=== PATIENT | male | born 1970 | race Caucasian/White ===

== ENCOUNTER 2016-11-03 23:14 | Inpatient (IN) | payer OTHER ==
[2016-11-03] MEDS ORDERED: LORazepam INJ* 2 MG/ML 1 ML VIAL IM ONE (23:18)
[2016-11-03] MEDS ORDERED: Haloperidol INJ IV/IM* 5 MG/ML AMP IM ONE (23:18)
[2016-11-03] MEDS ORDERED: diPHENhydraMINE IV* 50 MG/ML 1 ml VIAL (BENADRYL) IM ONE (23:19)
[2016-11-03] MEDS ORDERED: diPHENhydraMINE IV* 50 MG/ML 1 ml VIAL (BENADRYL) ONE (23:25)
[2016-11-03] MEDS ORDERED: LORazepam INJ* 2 MG/ML 1 ML VIAL ONE (23:25)
[2016-11-03] MEDS ORDERED: Haloperidol INJ IV/IM* 5 MG/ML AMP ONE (23:25)
--- NOTE | 2016-11-03 23:25 | UC ---
Psychiatric Complaint HPI - HPI Summary HPI Summary: posted suicidal ideation on Facebook was found by TCS attempted Suicide by Carbon monoxide pensioning in a garage with a car running-ovidio has a history of PTSD and Violence ---duration of exposure to carbon monoxide is unknown - History Of Current Complaint Chief Complaint: EDMentalHealth Time Seen by Provider: 11/03/16 23:15 Hx Obtained From: Patient, EMS, Medical Records, Other: - TC Manjitmukeshkareen Hx From Patient Unobtainable Due To: Other - not cooperative with interview ?: No Onset/Duration: Sudden Onset Timing: Constant Severity Initially: Severe Severity Currently: Severe Character: Depressed Alleviating Factor(s): Nothing Associated Signs And Symptoms: Hostile Related History: Positive For: Prior Psychiatric Issues Has Suicidal: Demonstrates Gesture, Has Prior Attempt(s) - Risk Factor(s) Completed Suicide Risk Factors: Male, White Iranian, Past Suicide Attempt - Allergies/Home Medications Allergies/Adverse Reactions: Allergies Allergy/AdvReac Type Severity Reaction Status Date / Time Penicillins [PCN] Allergy Rash Verified 10/05/15 01:33 PMH/Surg Hx/FS Hx/Imm Hx Previously Healthy: No Endocrine History: Dyslipidemia Psychological History: Depression, Post Traumatic Stress Disorder, Other - night terrors Other Psychological History: night terrors - Family History Known Family History: Positive: None Family History: no family history reported - Social History Occupation: Unemployed - social history is unconfirmed due to patients inabilty at this time to cooperate Lives: With Family Alcohol Use: Weekly Substance Use Type: None Smoking Status (MU): Unknown if Ever Smoked Review of Systems Constitutional: Negative Skin: Negative Eyes: Negative ENT: Negative Respiratory: Negative Cardiovascular: Negative Gastrointestinal: Negative Genitourinary: Negative Motor: Negative Neurovascular: Negative Musculoskeletal: Negative Neurological: Negative Psychological: Depressed, Other - suicidal All Other Systems Reviewed And Are Negative: Yes Physical Exam Triage Information Reviewed: Yes Completion Of Physical Exam Limited Due To: Patient is uncooperative with exam Appearance: No Pain Distress, Well-Nourished, Ill-Appearing Vital Signs Reviewed: Yes Eyes: Positive: Conjunctiva Inflamed - bilateral ENT Exam: Normal ENT: Positive: Normal ENT inspection, Hearing grossly normal. Negative: Nasal congestion, Nasal drainage, Tonsillar swelling, Tonsillar exudate, Trismus, Muffled/hoarse voice Neck exam: Normal Neck: Positive: Supple, Nontender Respiratory Exam: Normal Respiratory: Positive: Chest non-tender, Lungs clear, Normal breath sounds, No respiratory distress, No accessory muscle use Cardiovascular Exam: Normal Cardiovascular: Positive: No Murmur, Pulses Normal, Brisk Capillary Refill, Tachycardia Abdominal Exam: Normal Abdomen Description: Positive: Nontender, No Organomegaly, Soft Bowel Sounds: Positive: Present Musculoskeletal Exam: Normal Musculoskeletal: Positive: Strength Intact, ROM Intact, No Edema Neurological Exam: Normal Neurological: Positive: Alert, Muscle Tone Normal Psychological Exam: Other Skin Exam: Normal Re-Evaluation - Re-Evaluation First Eval Change: Unchanged - CO 28.2 pat continues on 10 liter oxy mask--reviewed case with Dr. Simms Plan to call [facility] Second Eval Re-Evaluation Time: 14:15 Change: Unchanged Comment: all restraines are of on 10l oxymask, arousable but not combative, spoke with [facility] transfer who (Dr. Duval) refused transfer as they could offer no additional care than what we have available---again reviewed case with Dr. Simms---plan to admit to [facility] report and case presentation to Dr. King Psych Complaint Course/Dx - Course Course Of Treatment: High yvonne O2, Safety, admit to [facility] - Differential Dx/Diagnosis Differential Diagnosis/HQI/PQRI: Depression, Suicide Attempt Provider Diagnoses: Suicide Attempt Co Poisioning - Physician Notifications Discussed Patient Care With: Amos Padilla Time Discussed With Above Provider: 02:10 Instructed by Provider To: Admit As Inpatient Discharge - Discharge Plan Condition: Guarded Disposition: ADMITTED TO [facility]
[2016-11-04 00:43] LABS: Hematocrit 46 % (42-52); Hemoglobin 16.1 g/dl (14.0-18.0); Mean Corpuscular HGB Conc 35 g/dl (31-36); Mean Corpuscular Hemoglobin 33 pg (27-31); Mean Corpuscular Volume 95 fL (80-94); Mean Platelet Volume 8 um3 (7.4-10.4); Red Blood Count 4.88 10^6/ul (4.0-5.4); Red Cell Distribution Width 14 % (10.5-15); White Blood Count 7.3 10^3/ul (3.5-10.8)
[2016-11-04 01:00] LABS: ALT 23 U/L (7-52); AST 29 U/L (13-39); Albumin 4.6 g/dL (3.2-5.2); Alkaline Phosphatase 59 U/L (34-104); Anion Gap 8 mmol/L (2-11); BUN/Creatinine Ratio 8.8 (8-20); Blood Urea Nitrogen 9 mg/dL (6-24); CO2 Carbon Dioxide 22 mmol/L (22-32); Calcium 9.4 mg/dL (8.6-10.3); Chloride 107 mmol/L (101-111); EGFR Non-African American 79.3 (>60); Globulin 3.1 g/dL (2-4); Glucose 100 mg/dL (70-100); Potassium 3.6 mmol/L (3.5-5.0); Sodium 137 mmol/L (133-145); Total Protein 7.7 g/dL (6.4-8.9)
[2016-11-04 01:13] LABS: Acetaminophen < 15 mcg/mL; Alcohol 89 mg/dL (<10); Salicylate < 2.50 mg/dL (<30)
[2016-11-04 01:24] LABS: TSH (Thyroid Stimulating Horm) 1.93 mcIU/mL (0.34-5.60)
[2016-11-04 01:52] LABS: Urine Bacteria Absent (Absent); Urine Bilirubin Negative (Negative); Urine Glucose Negative (Negative); Urine Nitrite Negative (Negative)
[2016-11-04 02:04] LABS: Benzodiazepine Urine Screen None Detected (None Detect)
[2016-11-04 02:53] LABS: Troponin I 0.01 ng/mL (<0.04)
[2016-11-04] MEDS ORDERED: NS 0.9% w/ 20 Meq KCL 1000 ML* 1,000 ML IV SCH (04:00)
[2016-11-04] MEDS ORDERED: Ziprasidone * 20 MG CAP (generic Geodon) PO PRN (09:42)
[2016-11-04] MEDS ORDERED: LORazepam INJ* 2 MG/ML 1 ML VIAL IM PRN ×2 (09:42→18:32)
[2016-11-04] MEDS: Heparin VIAL(*) 5000 UNITS/ML VIAL (FIVE THOUSAND) SUBCUT SCH (09:57)
--- NOTE | 2016-11-04 10:03 | RAD ---
Indication: Elevated CO2 levels. Single frontal view of the chest performed at 0115 hours was reviewed. No prior study is available for review. No mediastinal shift is noted. Heart is of normal size and configuration. Lung medrano appear clear. IMPRESSION: NO ACTIVE CARDIOPULMONARY DISEASE IS NOTED.
[2016-11-04] MEDS: LORazepam TAB(*) 1 MG PO PRN (10:04)
[2016-11-04] MEDS ORDERED: Ziprasidone IM INJ* 20 MG/ML VIAL IM PRN (10:42)
[2016-11-04] MEDS ORDERED: oxyCODONE/Acetamin 5/325 MG* TAB PO PRN (11:03)
--- NOTE | 2016-11-04 11:25 | PN ---
Progress Note - Progress Note Date of Service: 11/04/16 Note: CRITICAL CARE MEDICINE Date: 11/04/16 Time: 1000 SUBJECTIVE: Patient seen but he refused to be examined. we did converse as much as able. He denies kenney. He states he wants to leave. I explained he couldn't and we discussed potential treatment needs. He declined such at this time. He is declining food. He became more agitated stating he wants to leave and why are we keeping him here. I explained his initial carbon monoxide toxic levels and the time need to clear this. He states "they weren't toxic enough because they didn't get the job done". He states he tried this before and it didn't work and we had him in the hospital and then just let him go. Psych has evaluated and are helping facilitate transfer to [facility]. PHYSICAL EXAM: Vital Signs: Reviewed from overnight. He is awake communicating, agitated at times, and angry. Not flushed. Skin looks stable color. RA now and mnl breathing pattern. Again, exam otherwise declined and pt wearing his street clothes. LABS: Reviewed. IMAGING: CXR nml. MEDICATIONS: Reviewed. ASSESSMENT: 46 M with intentional carbon monoxide poisoning, polysubstance abuse (cocaine, marijuana and etoh) and suicidal behavior admitted to ICU overnight given his levels and observatory care. Better this am from [place]. However, psych features with h/o violence coming forward. Already left building ama with [place] police bring him back in. Remains suicidal. 1:1 and security aware. Pt declining specific tx from me at this time, but after my visit he is requesting pain meds for his msk pain. Ativan prn. Geodon prn. Seeking transfer to [place] inpt psych for which his is now stable medically and no longer needs ICU, but will stay her given the logositic and concerns regarding his potential eloping or violence. Does not require ICU mechanical monitoring at this time. See if he can become more reasonable at all with time. Appreciate psych eval and f/u. Supportive and preventative care as ordered. SUP: po diet VTE prophylaxis: declines Disposition: ICU Code Status: Full Critical Care Time: 30min FYovanny Sepulveda DO
--- NOTE | 2016-11-04 11:51 | HP ---
ADMISSION HISTORY AND PHYSICAL: DATE OF ADMISSION: 11/04/16. PRIMARY CARE DOCTOR: The patient's primary care doctor is in [place], he cannot remember the name. CHIEF COMPLAINT: Suicide attempt. HISTORY OF PRESENT ILLNESS: Mr. Vieira is a 46-year-old male who was brought in by law enforcement in an agitated and violent state. He was found in a garage, which was locked with a car running in a suicide attempt. When the patient was brought in, he was combative and placed in 4-point restraints. He received Haldol, Ativan, and Benadryl and has been lethargic since then. The patient was found to have elevated carbon monoxide in the blood and there was an attempt to transfer the patient from this hospital to [facility] for critical care, but the plant breeder scientist there declined the case stating that no treatment was needed beyond high flow oxygen. The patient cannot give any history. PAST MEDICAL HISTORY: Includes PTSD and violence. The patient is not known to this hospital. PAST SURGICAL HISTORY: No surgical history known. MEDICATIONS: Unknown, although there was a list in the computer from a previous ER visit for an injury which includes: 1. Abilify. 2. Cymbalta. 3. Gemfibrozil. 4. Magnesium. 5. Prazosin. 6. Topamax. ALLERGIES: PENICILLIN. FAMILY HISTORY: The patient has unknown family history. SOCIAL HISTORY: Unknown. He does use alcohol and marijuana based on his urine drug screen. It is unknown why he is in [place], apparently lives in [place]. REVIEW OF SYSTEMS: The patient's review of systems unable to be completed due to his mental status. PHYSICAL EXAMINATION GENERAL: He is somnolent, arouses to tactile stimulation, would just back off to sleep after saying a few words. VITAL SIGNS: Temperature is 37.0, pulse 75, respirations 20, blood pressure is 136/81, O2 sat is 92%. HEENT: His head is normocephalic, atraumatic. Sclerae are anicteric. Pupils are dilated and reactive to light symmetrically. Oropharynx is moist, no lesions. His gag reflux is intact. NECK: No deformity. Trachea midline. No carotid bruits or thyromegaly. LUNGS: Clear to auscultation and percussion bilaterally. HEART: Regular rate and rhythm without murmurs or gallops. ABDOMEN: Soft, nontender, positive bowel sounds. No hepatosplenomegaly. EXTREMITIES: No obvious injuries. No peripheral edema. SKIN: No lesions. NEUROLOGIC: Cranial nerves II through XII are grossly intact. He can move all 4 extremities with equal power. He does not really follow commands. He cannot comply with a full neurologic examination. PSYCHIATRIC: He is somnolent, will say a few words like yes or no, and answer to questions when he is stimulated physically, but then just back to sleep. LABORATORY DATA: Sodium 135, potassium 3.6, chloride 107, bicarb 22, BUN 9, creatinine 1.02, glucose 100, calcium 9.4, albumin 4.6, AST 29, ALT 23, bilirubin 0.4. TSH 1.93. Carbon monoxide level is 28.2. CK-MB is 4.6. Troponin 0.01. White count 7.3, hemoglobin 16.1, hematocrit 46%, and platelets are 195. Alcohol level 89, acetaminophen level 0, salicylate level 0. Urinalysis shows cocaine positive, cannabis positive. Urinalysis shows 1+ blood and otherwise normal. EKG shows sinus arrhythmia, normal axis, T-wave flattening in leads III and aVF. DIAGNOSTIC DATA: Chest x-ray is negative for infiltrates or effusions. ASSESSMENT AND PLAN: A 46-year-old male with severe carbon monoxide exposure. There is a risk of myocardial damage and cerebral anoxic injury. The patient requires treatment in the intensive care unit with high flow oxygen and close monitoring. We will have to see if any myocardial or cerebral damage is not done when the patient wakes up and can comply with further testing. The patient also has had a severe suicide attempt and will be monitored one to one and have psychiatry consult when he is alert and able to be interviewed. We can try to obtain further records from his pharmacy in the morning or from primary care or Psychiatry in [place]. Code status is full. He will be off subcutaneous heparin while he is in the ICU given his bedbound status. [id number]/[facility] #: [id number] [facility]X HOSPITALBeto
--- NOTE | 2016-11-04 11:59 | CONS ---
PSYCHIATRIC CONSULTATION: DATE OF ADMISSION: 11/04/16 DATE OF CONSULTATION: 11/04/16 ATTENDING PHYSICIAN: Amos Padilla MD CONSULTING PROVIDER: Navneet Sosa MD REASON FOR CONSULT: Suicide attempt. 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 The patient was mos tly unresponsive and was subsequently discovered to have an alcohol level of 89, also with cocaine a nd cannabinoids in his system. Initially his carbon monoxide level was toxic at 28.2; however, a arambula bsequent recheck revealed this had come back to normal at 9.2. Apparently the patient, when he woke up early this morning, tried to elope from the hospital resulting in local law enforcement being annika led to bring him back to the ICU, so that he could be medically and psychiatrically cleared. At thi s time, he is uncooperative. I see that he has a work uniform on, although he will not tell me wher e he works. He is stating only that he wants to go home and go to bed. I asked repeatedly whether he is safe to do so and he will not respond. The patient refuses to answer any questions about suic idal or homicidal behaviors, he appears angry, hostile and agitated. At this time, he is willing to take 2 mg oral Ativan, but he is mostly uncooperative with history taking and there is limited info rmation in his chart with respect to his history. He is telling me that he is a service- [facility] combat [facility] and has had prior hospitalizations at the [facility] althoug h he does not recall when his latest was. I asked the patient for collateral contacts and he respon ds that he has no one. Checking his demographics in the chart, I do not see any collateral family m embers or friends listed and therefore I am only going by his limited account. PAST PSYCHIATRIC HISTORY: The patient does have one prior visit to [facility] in September of 2015, when he was brought in again by the police intoxicated, having been menacing towards his girl friend at that time. His alcohol level at that time was 216, and once he sobered up he became coope rative and denied further thoughts of harm to himself or others and was subsequently discharged. He states that he has a formal diagnosis of PTSD. Currently he states that he is not taking medicatio n. It is unclear whether he has had outpatient treatment for these issues. SUBSTANCE ABUSE HISTORY: Positive for cocaine, alcohol and cannabis abuse. The patient admits to s moking cigarettes as well. MEDICAL HISTORY: Significant for hyperlipidemia. MEDICATIONS: Last noted medications included: 1. Abilify 20 mg p.o. daily. 2. Cymbalta 60 mg p.o. daily. 3. Lopid 600 mg p.o. b.i.d. 4. Prazosin 6 mg p.o. q.h.s. 5. Topamax 200 mg nightly. FAMILY HISTORY: Unknown. SOCIAL HISTORY: The patient states that he lives alone in [place]. He is currently employed and he is wearing a work shirt; however, he refuses to tell me who his employer is. The patient is an [employer] . 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 He states that he was in [place] between the [facility] rs of 2002 and 2003. MENTAL STATUS: Examination is as follows: The patient is a middle aged white male wearing a work s corinna, who is sitting in a chair in the ICU staring at the floor. He is uncooperative and will not ma ke eye contact. Speech is limited and not spontaneous. Mood appears to be irritable with a labile affect. Thought process is linear. Thought content is significant for his desire to leave the hosp ital. The patient refuses to answer questions about suicidal or homicidal ideations, although he is known to have been violent with law enforcement officials prior to coming to the hospital. It is al so known that he made a formal suicide attempt last night by running carbon monoxide into his car in a local parking garage. He denies auditory or visual hallucinations and there is no evidence of ac tive psychosis. Insight and judgement appears to be poor, given the patient's refusal for a followu p treatment. Cognitively he is awake and alert with what would appear to be an average intellect. DIAGNOSES: As follows: [place] I: Posttraumatic stress disorder, cocaine use disorder, alcohol use disorder, cannabis use dis order. [place] II: Antisocial personality traits. IMPRESSION: The patient is a 46-year-old single white male, [place] [employer] who arrives at [facility] facility initially intoxicated on cocaine, alcohol and Cannabis, who has apparently attempted suic lorena via carbon monoxide poisoning. When he awoke, he was agitated and insisting on leaving the hos pital and had to be brought back by local law enforcement after eloping from our facility. At this time, he is angry and noncooperative and cannot contract for his own safety. RECOMMENDATIONS TO PRIMARY TEAM: It is my opinion that this patient represents a danger to both him self and others. He is service connected at the [employer] and I am certain that they know his case the bes t. The standard of care would be to transfer him to a local [facility] for further psychiatric stabilizat ion. I am going to recommend Ativan 2 mg p.o. q.6 h. at this point to help him relax as he awaits jean marie flores. Psychiatry will continue to provide consultation. Thank you for the consult. [id number]/[facility] #: [id number]
[2016-11-04] MEDS ORDERED: LORazepam INJ* 2 MG/ML 1 ML VIAL IV PUSH PRN (13:49)
[2016-11-04 18:03] VITALS: BP 117/74
[2016-11-05] MEDS: Heparin VIAL(*) 5000 UNITS/ML VIAL (FIVE THOUSAND) SUBCUT SCH ×2 (00:58→09:39)
[2016-11-05] MEDS ORDERED: Ziprasidone IM INJ* 20 MG/ML VIAL IM ONE (05:00)
[2016-11-05 08:21] LABS: Calcium 9.4 mg/dL (8.6-10.3); EGFR African American 89.7 (>60); EGFR Non-African American 69.8 (>60); Potassium 4.1 mmol/L (3.5-5.0)
[2016-11-05] MEDS: LORazepam TAB(*) 1 MG PO PRN (10:07)
--- NOTE | 2016-11-05 11:30 | DS ---
CRITICAL CARE MEDICINE DISCHARGE SUMMARY ADMISSION DATE: 11/03/2016 ICU ADMISSION DATE: 11/04/2016 ICU DISCHARGE DATE: 11/05/2016 PRIMARY CARE PROVIDER: unknown REFERRING PHYSICIAN: Dr. Moreno. DIAGNOSIS: 1. Carbon monoxide poisoning. 2. Acute metabolic delirium. 3. Severe depression. 4. Suicidal ideation and attempt. 5. Post traumatic stress disorder. 6. Polysubstance abuse (toxicology screen positive for cocaine, marijuana). 7. History of violence. MEDICATIONS AT DISCHARGE: Lorazepam (Ativan Tab(*)) 2 mg PO Q6H PRN PRN Reason: ANXIETY Lorazepam (Ativan Inj*) 2 mg IV PUSH Q4H PRN PRN Reason: AGITATION/ANXIETY Lorazepam (Ativan Inj*) 2 mg IM Q4H PRN PRN Reason: ANXIETY Ziprasidone (Geodon (Generic) *) 20 mg PO DAILY PRN PRN Reason: AGITATION Ziprasidone (Geodon Im Inj*) 10 mg IM TID PRN PRN Reason: AGITATION ALLERGIES: Penicillins. HOSPITAL COURSE: 46 year old male [place] war with history of PTSD presenting with suicidal attempt with carbon monoxide poisoning. Patient had posted his intentions on [employer] and his sister alerted police who found patient with tubing connected from his exhaust pipe into his running car. Brought into the emergency department. Carbon monoxide level of 28.2. Treated with fluids and oxygen. Admitted to ICU with psychiatry consult. Patient eloped from hospital [place] and brought back in by police. Treated with geodon, ativan as able. Non-remorseful and still potential harm to self and potentially others. Needing inpatient psychiatry when bed available at [facility]. DISPOSITION: Discharge from hospital with direct admission to [facility] inpatient psychiatry in [place]. DIET: Regular. ACTIVITY: Out of bed. CODE STATUS: FULL. FOLLOW UP: with treating medical service Clyde Sepulveda DO
--- NOTE | 2016-11-05 11:56 | PN ---
Progress Note - Progress Note Date of Service: 11/05/16 Note: CRITICAL CARE MEDICINE Date: 11/05/16 Time: 1000 SUBJECTIVE: Patient seen. Stable. wants to leave PHYSICAL EXAM: Vital Signs: Reviewed. awake communicating less agitated. eyes closed bot wanting to talk. LABS: Reviewed. IMAGING: Reviewed. MEDICATIONS: Reviewed. ASSESSMENT: 46 M with intentional carbon monoxide poisoning, polysubstance abuse (cocaine, marijuana and etoh) and suicidal behavior in ICU for continued 1 :1 observation awaiting inpt psych at [place]. labs stable. off monitior. po intake. ativanjosedon prn. needs inpt psych today Supportive and preventative care as ordered. VTE prophylaxis: declines Disposition: could be on floor but in icu for logisitics Code Status: Full Critical Care Time: 20min Clyde Sepulveda DO
--- NOTE | 2016-11-05 15:34 | PN ---
Subjective - Subjective Service Type: 32269 Hosp care 15 min low complexity Subjective: The patient remains in the ICU, medically clear, but under 1:1 observation due to suicidality. He will not make eye contact with me and is lying supine in his bed, staring at the ceiling. He denies having any collateral contacts, either friends or family, that are involved in his care. He is a patient of a Dr. Miller at the [facility] but states that he went off psychotropic medications months ago. He has been hospitalized psychiatrically at the [facility] in the past but cannot recall when. He has tried to elope again today only to be brought back by police. Occasionally he will accept PO lorazepam for agitation but no other medications. He refuses to answer questions about continued suicidal ideation. Objective - Appearance Appearance: Well Developed/Nourished Dysmorphic Features: No Hygiene: Normal Grooming: Fairly Well Kept - Behavior Psychomotor Activities: Abnormal-Decreased Exhibits Abnormal Movement: No - Attitude and Relatedness Attitude and Relatedness: Hostile Eye Contact: Poor - Speech Quality: Pressured Latencies: Long Quantity: Terse - Mood Patient's Decription of Mood: "Angry" - Affect Observed Affect: Tense Affect Consistent with: Dysphoria - Thought Process Patient's Thought Process: Coherent Thought Content: Yes Suicidal Planning, No Passive Wish, No Homicidal Ideation, No Paranoid Ideation - Sensorium Experiencing Hallucinations: No, Sensorium is Clear Type of Hallucinations: Visual: No, Auditory: No, Command: No - Level of Consciousness Level of Consciousness: Agitated Orientation: Yes Intact, Yes Orientated to Time, Yes Orientated to Place, Yes Orientated to Person - Impulse Control Impulse Control: Poor - Insight and Judgement Insight and Judgement: Impaired - Group Participation Particating in Group Activities: No - Medication Management Medication Management Adherence: No Assessment - Assessment Merits Inpatient Hospitalization: For Immediate Safety, For Stabilization Inpatient DSM-IV Dx: PTSD Clinical Impression: 46 y.o. single, white male [place] [employer] with a history of combat related PTSD who was brought in by the police after being discovered poisoning himself with CO while running his automobile in a closed garage. He is unwilling to contract for safety and presents as angry and irritable with cocaine, alcohol and cannabis in his system at the time of admission. Plan - Plan Treatment Plan: Name: KEYON WILLINGHAM Birthdate: 1970 [id number] Patient refusing resumption of psychiatric medications and insisting on going home but refuses to contract for safety. Police have had to bring him back twice following elopement. staff is pursuing transfer to a [facility], however, no beds available at [facility]. Will extend search to [facility] and [facility]. Continue prn lorazepam for agitation. Psychiatry will continue to follow. Continued Medication Management: Start Medication Medications: Current Medications Lorazepam (Ativan Tab(*)) 2 mg PO Q6H PRN PRN Reason: ANXIETY Last Admin: 11/05/16 10:07 Dose: 2 mg Lorazepam (Ativan Inj*) 2 mg IV PUSH Q4H PRN PRN Reason: AGITATION/ANXIETY Last Admin: 11/05/16 04:45 Dose: 2 mg Lorazepam (Ativan Inj*) 2 mg IM Q4H PRN PRN Reason: ANXIETY Oxycodone/Acetaminophen (Percocet 5/325 Tab*) 2 tab PO Q6H PRN PRN Reason: PAIN Last Admin: 11/04/16 12:01 Dose: 2 tab Ziprasidone (Geodon (Generic) *) 20 mg PO DAILY PRN PRN Reason: AGITATION Stop: 11/06/16 09:01 Ziprasidone (Geodon Im Inj*) 10 mg IM TID PRN PRN Reason: AGITATION Last Admin: 11/04/16 14:11 Dose: 10 mg - Discharge Plan Discharge Plan: Inpatient Hospitalization
== END 2016-11-05 17:13 | DRG 918 ==
LOC: ED 23:14 → ICU 11-04 02:57
PROVIDERS: ADMIT Internal Medicine; ATTEND Internal Medicine Critical Care Medicine
DX: T58.02XA Toxic effect of carbon monoxide from motor vehicle exhaust, intentional self-harm, initial encounter (principal); Z78.1 Physical restraint status; F32.9 Major depressive disorder, single episode, unspecified; F43.10 Post-traumatic stress disorder, unspecified; Z88.0 Allergy status to penicillin; Y92.59 Other trade areas as the place of occurrence of the external cause; E78.5 Hyperlipidemia, unspecified; Z56.0 Unemployment, unspecified; F10.10 Alcohol abuse, uncomplicated; F14.10 Cocaine abuse, uncomplicated; Y90.9 Presence of alcohol in blood, level not specified; F12.10 Cannabis abuse, uncomplicated; R45.1 Restlessness and agitation; Y90.4 Blood alcohol level of 80-99 mg/100 ml; F17.210 Nicotine dependence, cigarettes, uncomplicated; R41.0 Disorientation, unspecified
CPT/HCPCS: 36415; 71010; 80048; 80053; 80307; 80320; 80329; 81003; 81015; 82375; 82553; 84443; 84484; 85025; 93005; 94760; A9270-GY; G0480; J1200; J1630; J2060

== ENCOUNTER 2016-11-05 16:00 | Inpatient (IN) | payer OTHER ==
[2016-11-05] MEDS ORDERED: Acetaminophen TAB* 325 MG PO PRN (16:23)
[2016-11-05] MEDS ORDERED: Nicotine GUM* 2 MG PO PRN (16:23)
[2016-11-05] MEDS ORDERED: Al Hydrox/Mg Hydrox/Simet LIQ* 30 ML UDC PO PRN (16:23)
[2016-11-05] MEDS ORDERED: Nicotine Inhaler* 10 MG AMP INH PRN (16:23)
[2016-11-05] MEDS ORDERED: Magnesium Hydroxide LIQ* 30 ML UDC PO PRN (16:26)
[2016-11-05] MEDS ORDERED: Ziprasidone IM INJ* 20 MG/ML VIAL IM PRN (17:41)
[2016-11-05] MEDS ORDERED: Prazosin CAP* 5 MG PO PRN (17:43)
[2016-11-05] MEDS ORDERED: Prazosin CAP* 1 MG PO PRN (17:44)
[2016-11-05 18:52] VITALS: BP 0/0
[2016-11-05] MEDS ORDERED: Mouth Piece, Nicotine* 1 EACH CARTRIDGE ONE (19:48)
[2016-11-06] MEDS: oxyCODONE/Acetamin 5/325 MG* TAB PO PRN ×2 (11:58→21:33)
[2016-11-06] MEDS: Haloperidol TAB* 5 MG PO PRN ×2 (12:03→21:29)
[2016-11-06] MEDS: LORazepam TAB(*) 1 MG PO PRN ×2 (12:03→21:29)
--- NOTE | 2016-11-06 22:04 | HP ---
PSYCHIATRIC ASSESSMENT: DATE OF ADMISSION: 11/05/16 JUSTIFICATION FOR ADMISSION: The patient is in need of 24-hour supervision and care secondary to suicide attempt within 72 hours of admission date. CHIEF COMPLAINT: "Either you let me out of here or you are not doing nothing for me." HISTORY OF PRESENT ILLNESS: Lázaro Vieira is a 46-year-old single [employer] with combat service in [place], who was brought to the hospital by police after being found in a garage with the garage door closed and his automobile running resulting in carbon monoxide poisoning in what was a formal suicide attempt. The patient was mostly unresponsive and subsequently discovered to have an alcohol level of 89 along with cocaine and cannabinoids in his system. Initially, his carbon monoxide level was toxic at 28.2; however, a subsequent recheck revealed that this had come back to normal at 9.2. Apparently, the patient woke up on the morning of hospitalization and tried to elope. In fact, he tried on at least 2 occasions to elope from the ICU. Once he was medically cleared, it was determined that he would meet criteria for psychiatric stabilization and he was therefore transferred to the behavioral science unit. The patient is wearing his work uniform on and he is mostly uncooperative refusing to answer any questions about suicidal or homicidal behaviors. He has been angry, hostile, and agitated and there is limited history in his chart and the patient is not providing me with much history himself. 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 He has had prior hospitalizations at the [facility], although he does not recall when his latest was. I asked for collateral contacts and he responds that his parents live [place] of [place] that he is not willing to call them unless they are coming to pick him up from the hospital. I am aware that he had a girlfriend until recently a woman named Ayanna, who apparently broke up with him and has signed an order of protection. He is concerned that they were sharing a house, in which the lease is in her name. The patient has a [employer] connected service dog that is still there and he states that he is concerned about the dog and wants to return home so that he can make sure that it is okay. PAST PSYCHIATRIC HISTORY: The patient does have one prior visit to [facility] in September of 2015 and in that case, he was also brought in intoxicated having menacing behavior towards his girlfriend. His alcohol level at that time was 216 and once he sobered up, he became cooperative and denied further thoughts of harm to himself or others and was subsequently discharged without being admitted. He does state that he has a formal diagnosis of PTSD, but states that he discontinued his medication a [id number]-half ago because he felt that it was not working. He indicated that he has gone back to [facility] multiple times to request a change in medications only to have them increase the doses of what he had been taking. The patient refuses to answer questions about past suicidal or homicidal behaviors. SUBSTANCE ABUSE HISTORY: The patient abuses cocaine, alcohol, and cannabis. He smokes an unknown quantity of cigarettes daily as well. PAST MEDICAL HISTORY: Significant for hyperlipidemia. MEDICATIONS: As last noted in our system were: 1. Abilify 20 mg p.o. daily. 2. Cymbalta 60 mg p.o. daily. 3. Lopid 600 mg p.o. b.i.d. 4. Prazosin 6 mg p.o. q.h.s. 5. Topamax 200 mg p.o. q.h.s. FAMILY HISTORY: Unknown. SOCIAL HISTORY: The patient states that he was born and raised in the [place] area and both of his parents still reside in [facility]. He is currently employed for [employer] at their facility on [facility]. The patient is an [employer] and has an Army service dog at home. 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 The patient states that he served in [place] for one tour between the years of 2002 and 2003. He is unwilling to share his traumatic experiences with this observer. REVIEW OF SYSTEMS: The patient denies headache or double vision. He is complaining of some right-sided chest pain apparently caused by an altercation between him and the police prior to appearing at the hospital. Other than this , he denies difficulty breathing, cough, or sore throat. He denies abdominal pain, nausea, vomiting, diarrhea, or constipation. He denies difficulty ambulating, changes in weight, fevers, rashes, or enlarged lymph nodes. PHYSICAL EXAMINATION Physical examination could not be done due to the patient's uncooperative nature. He is not even allowing us to take vital signs. MENTAL STATUS EXAMINATION: The patient is a middle-aged white male wearing a Lisandro work shirt, who is sitting in his bed starring at the floor. He is uncooperative and will not make eye contact. Speech is limited and nonspontaneous. Mood appears to be irritable with a labile affect. Thought process is linear. Thought content is significant for his desire to leave the hospital. The patient refuses to answer questions about suicidal or homicidal ideations, although he is known to have been violent with law enforcement officials prior to coming to the hospital. It is also known that he made a formal suicide attempt last night by running carbon monoxide into his car in a local parking garage. He denies auditory or visual hallucinations and there is no evidence of active psychosis. Insight and judgment appears to be poor given the patient's refusal for followup treatment. Cognitively, he is awake and alert with what would appear to be an average intellect. LABORATORY DATA: CBC is within normal limits. Most recent carbon monoxide was within normal limits at 3.5%. Complete metabolic panel is within normal limits. TSH normal at 1.93. Urinalysis is within normal limits. Urine toxicology shows positive metabolites of cocaine and cannabis and his alcohol was elevated at 89 upon admission. DIAGNOSES: [place] I: Posttraumatic stress disorder, cocaine use disorder, alcohol use disorder, cannabis use disorder. [place] II: Antisocial personality traits. [place] III: Hyperlipidemia. [place] IV: Severe primary support, housing, and legal stressors. [place] V: Currently 30. IMPRESSION: The patient is a 46-year-old single white male [place] [employer] , who arrives at our unit as a transfer from the ICU following medical stabilization of carbon monoxide poisoning, which was self-inflicted by letting his vehicle run in a closed garage. The patient was intoxicated on cocaine, alcohol, and cannabis during his arrival. When he woke, he was agitated and insisting on leaving the hospital and has had to be brought back twice by local law enforcement after eloping twice. His presentation has not changed since his transfer from the ICU to the behavioral health unit as he remains angry and uncooperative and cannot contract for his own safety. PLAN: The patient is admitted to the adult behavioral health unit where he is placed on q.15-minute checks for his own safety. Given the circumstances of his attempts to elope and his irritability, we will likely increase this to constant observations at this time. He is a service-connected and is preferring to receive treatment in a [place] facility and we will accommodate this by referring him to various [facility] hospitals such as [facility], and [place]. While he is here, he is refusing scheduled psychiatric medications although he is occasionally willing to take p.o. Haldol and Ativan to reduce his agitation. While he is here, he is certainly encouraged to avail himself of milieu treatments such as individual and group psychotherapies; however, he remains somewhat resistant to this. I think the best we can do for him is send him to a [place] facility so that he can get to care of that he deserves as a combat . [id number]/[facility] #: [id number] OMI
[2016-11-07] MEDS: oxyCODONE/Acetamin 5/325 MG* TAB PO PRN ×2 (08:51→11:03)
[2016-11-07] MEDS: LORazepam TAB(*) 1 MG PO PRN (10:57)
--- NOTE | 2016-11-08 08:29 | DS ---
DISCHARGE SUMMARY: DATE OF ADMISSION: 11/05/16 DATE OF DISCHARGE: 11/07/16 DISCHARGE DIAGNOSES: As follows: [place] I: Cocaine induced mood disorder, posttraumatic stress disorder, cocaine use disorder, alcoho l use disorder, cannabis use disorder. [place] II: Antisocial personality straits. [place] III: Hyperlip idemia. [place] IV: Severe primary support, housing and legal stressors. [place] V: At the time of admis sheila was 30 and at the time of discharge is 60. CONDITION AT THE TIME OF DISCHARGE: Guarded. The patient refuses to contract for safety and it is highly likely that he maintains some type of suicidal plan. Because he is unstable and unsafe for katherine braun back home, we are referring him to the [facility] in [facility]. There he has been accepted by attending psychiatrist, Dr. Orr. [facility]. MENTAL STATUS EXAMINATION AT THE TIME OF DISCHARGE: The patient is a middle-aged white male wearing a [employer] work shirt who is sitting in his bed, staring at the floor. He is uncooperative and will not make eye contact. Speech is limited and nonspontaneous. Mood appears to be irritable with a l abile affect. Thought process is linear. Though content is significant for his desire to leave the hospital. The patient refuses to answer questions about suicidal or homicidal ideations, although he is known to have been violent with law enforcement officials prior to coming to the hospital. It is also known to me that he made a former suicide attempt over the weekend by starting his car insi de of a closed garage with no ventilation in an attempt to asphyxiate himself. He does deny assurance auditor y or visual hallucinations and there is no evidence of active psychosis. Insight and judgment appea r to be poor, given his refusal to cooperate with treatment. Cognitively, he is awake and alert with what would appear to be an average intellect. DISCHARGE INSTRUCTIONS: To the patient are as follows: A. Medications: None. B. Diet: Regular. C. Activities: As per [facility] protocol. The pat ient declines continuation of nicotine replacement therapy indicating that the [facility] will allow [facility] to [facility] at their facility. There are no laboratory or diagnostic studies pending at this time. D. [facility] care: The patient is a direct transfer to the psychiatric inpatient unit at the [facility] in [place], [place]. There his attending clinician will be Dr. Orr. They will be responsible for arr anging all of his necessary followups at his time of discharge from that facility. HOSPITAL COURSE: Part A. Reason for admission: Lázaro Vieira is a 46-year-old single ar my with combat service in [place], who was brought to the hospital by police after being found in a garage with the garage door closed and his automobile running, resulting in carbon monoxide poi soning in what was a formal suicide attempt. The patient was mostly unresponsive and subsequently d iscovered to have an alcohol level of 89 along with cocaine and cannabinoids in his system. Initiall y his carbon monoxide level was toxic at 28.2; however, a subsequent recheck revealed that it had co me back to normal at 9.2 and was 3.7 on the date of transfer to Psychiatry. Apparently, the patient woke up in the morning of hospitalization in the ICU setting and tried to elope. In fact, he had a t least two occasions of elopement from the ICU requiring staff to call local authorities to have hi m brought back on to the unit. Once he was medically cleared, it was determined that he would meet criteria for psychiatric stabilization and he was therefore transferred to the Behavioral Science it. The patient is wearing his work uniform and is mostly uncooperative and refusing to answer any questions about suicidal or homicidal behaviors. He has been angry, hostile, agitated and there is limited history in his chart. The patient is not providing much collateral at the time of admission . 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 in [place], [place], where he has a therapist and a general medical doctor. He has had prio r hospitalizations at the [facility], although he does not recall when his latest was. I asked f or collateral contacts and he responded that his parents continue to live [place], but that h jerzy is not willing to call them unless they are coming to pick him up from the hospital. I am aware t hat he had a girlfriend until recently, a woman named Ayanna whom he was living with until [facility] 1 month ago. Apparently, they have broken up and she has signed an order of protection to hav e him removed from their shared apartment. He is concerned that since her name is on the lease, she will have access to all of his belongings as well as his therapy dog that he has through the [facility]. Part B. Psychiatric treatment rendered: The patient was admitted to the [facility] where he was placed on constant observations secondary to his suicidality and his prior attempts to elope from the hospital. The patient remained in his room throughout his brief hospital stay, re fusing to come out on to the unit for anything other than meals. He was nonparticipatory in milieu activities, would not go to groups and would not engage in therapeutic conservations with staff memb ers. He kept insisting on leaving the hospital. On the day of discharge, he was leery about going to the [facility] facility and it was only when we discussed possible referal to the [facility] in [place], [place] that he changed his mind and was agreeable to going to the [facility]. Prior to this, it is notable that there was an opportunity to send him to the [facility], which h as a contract with the [facility]. This was due to all the [facility] beds being full in the area. The patient ref used this, but on the day of discharge, a bed opened up at the [facility] allowing us to banuelos sfer him safely there. The only medication that the patient would accept was p.o. Ativan as well as oxycodone for pain. Apparently, he had injured his ribs during his arrest by police; however, when I reviewed the chest x-ray results from the ICU, they indicated no evidence of rib fracture. At th is time, he is in guarded condition, due to risks of self harm and also violence to others. We have given him oral Ativan to make him comfortable during the trip as well as a dose of oxycodone to ada at his pain. All followups will be arranged through the [facility] system. [id number]/[facility] #: [id number]
== END 2016-11-07 12:15 | disposition short-term general hospital (02) | DRG 897 ==
LOC: BSU 17:13
PROVIDERS: ADMIT Psychiatry & Neurology Psychiatry; ATTEND Psychiatry & Neurology Psychiatry
DX: F14.14 Cocaine abuse with cocaine-induced mood disorder (principal); F10.10 Alcohol abuse, uncomplicated; E78.5 Hyperlipidemia, unspecified; F43.10 Post-traumatic stress disorder, unspecified; Y90.4 Blood alcohol level of 80-99 mg/100 ml; F17.210 Nicotine dependence, cigarettes, uncomplicated; F12.10 Cannabis abuse, uncomplicated; R07.9 Chest pain, unspecified; Z91.5 Personal history of self-harm
CPT/HCPCS: 99222; 99238; A9270-GY